=== PATIENT | female | born 1955 | race Caucasian/White ===

== ENCOUNTER 2017-08-22 00:47 | Emergency (ER) | payer OTHER ==
[~2017-08-22] VITALS: Ht 167.6 cm; Wt 56.2 kg
[~2017-08-22 00:47] MED LIST: IMITREX50 MG PO; IRON325 M1 PO; MS CONTIN,ORAMO15 M1 PO; PAXIL40 MG PO; PERCOCET 10/1 TABLET PO; SYNTHROID25 MCG PO; TOPAMAX25 MG PO; VITAMIN D2000 UNIT PO; WELLBUTRIN XL300 MG PO
[2017-08-22 01:32] LABS: EOSINOPHIL COUNT 0.1 K/uL (0-0.3); HEMATOCRIT 41.8 % (36.0-46.0); IMMATURE GRANULOCYTE (%) 0.4 % (0.0-0.7); INSTRUMENT ABS NEUTROPHIL CT 4.1 K/uL; LYMPHOCYTE COUNT 2.9 K/uL (1.0-2.8); MCH 31.4 PG (29.0-34.0); MCHC 33.3 G/DL (30.0-36.0); MCV 94.4 FL (83-99); MEAN PLAT.VOLUME 10.1 uM^3 (9.5-12.4); MONOCYTE (%) 5.9 % (3-12); MONOCYTE COUNT 0.5 K/uL (0-0.8); NEUTROPHIL (%) 53.9 % (45-76); NEUTROPHIL COUNT 4.1 K/uL (1.8-6.4); PLATELET COUNT 170 K/uL (156-360); RBC DIS.WIDTH-CV 12.7 % (11.8-14.6); RBC DIS.WIDTH-SD 44.4 % (39-53); RED BLOOD COUNT 4.43 M/uL (3.80-5.20); WHITE BLOOD COUNT 7.7 K/uL (4.1-10.2)
[2017-08-22 01:40] LABS: CHLORIDE 106 mEq/L (99-109); SODIUM 138 mEq/L (136-147)
[2017-08-22 01:43] LABS: GLUCOSE 107 mg/dL (70-99)
[2017-08-22 01:44] LABS: ANION GAP 8 MEQ/L (2-14); TOTAL BILIRUBIN 0.5 mg/dL (0.0-1.0)
[2017-08-22 01:46] LABS: ALKALINE PHOSPHATASE 98 IU/L (3-129); GFR ESTIMATE (CALCULATED) > 59 mL/min/
[2017-08-22 01:47] LABS: UREA NITROGEN (BUN) 9 mg/dL (9-23)
[2017-08-22 01:53] LABS: TROP-I INTERPRETATION NEGATIVE; TROPONIN-I < 0.01 ng/mL (0.0-0.30)
[2017-08-22 04:08] LABS: TROP-I INTERPRETATION NEGATIVE; TROPONIN-I < 0.01 ng/mL (0.0-0.30)
[2017-08-22 04:38] VITALS: BP 155/89
== END 2017-08-22 04:39 | disposition home or self-care (01) ==
LOC: EME 00:47
PROVIDERS: Emergency Medicine
DX: M79.601 Pain in right arm (principal); M25.531 Pain in right wrist; M25.511 Pain in right shoulder; T45.0X5A Adverse effect of antiallergic and antiemetic drugs, initial encounter; R07.89 Other chest pain; F11.20 Opioid dependence, uncomplicated; I12.9 Hypertensive chronic kidney disease with stage 1 through stage 4 chronic kidney disease, or unspecified chronic kidney disease; N18.9 Chronic kidney disease, unspecified
CPT/HCPCS: 71020; 73090; 80053; 84484; 85025; 93005; 99281; 99285

== ENCOUNTER 2017-09-29 12:31 | Day surgery (SDC) | payer OTHER ==
[~2017-09-29] VITALS: Ht 154.9 cm; Wt 54.4 kg
[~2017-09-29 12:31] MED LIST changes: -PERCOCET 10/1 TABLET PO; +ROXICODONE15 MG PO; +VOLTAREN50 MG PO
== END 2017-09-29 14:11 | disposition home or self-care (01) ==
LOC: PAIN 12:31 → SDC 13:00 → PAIN 14:11
DX: M16.12 Unilateral primary osteoarthritis, left hip (principal); M48.061 Spinal stenosis, lumbar region without neurogenic claudication; M47.816 Spondylosis without myelopathy or radiculopathy, lumbar region; M51.36 Other intervertebral disc degeneration, lumbar region; I10 Essential (primary) hypertension; E03.9 Hypothyroidism, unspecified; Z88.2 Allergy status to sulfonamides; Z79.891 Long term (current) use of opiate analgesic
CPT/HCPCS: J1030; J2250; J3010; S0020

== ENCOUNTER → 2018-03-11 | Outpatient (CLI) | payer OTHER ==
[~2018-03-11] VITALS: Ht 154.9 cm; Wt 58.0 kg
[~2018-03-11] MED LIST changes: +BUPROPION XL150 MG PO; +PAROXETINE HCL20 MG PO
[2018-03-11 16:08] VITALS: BP 135/81
== END | disposition home or self-care (01) ==
LOC: IVINF 15:00
DX: M81.0 Age-related osteoporosis without current pathological fracture (principal)
CPT/HCPCS: 96365; J3489